=== PATIENT | male | born 1980 | race Caucasian/White ===

== ENCOUNTER → 2018-03-25 15:26 | Outpatient (CLI) | payer OTHER, SELFPAY ==
--- NOTE | 2018-03-25 19:25 | ONE_ITS ---
DATE OF SERVICE: March 25, 2018 ASSESSMENT: Infection, fifth digit left foot. EDUCATION: Improvement with prescribed antibiotic is a good indication of healing. Strongly encouraged to notify PCP or present to the Emergency Department if stops improving or condition worsens prior to follow-up appointment with PCP on 03/30/18. PLAN: Follow up with PCP (per patient preference). More than 50% of this visit spent in the planning and coordination of care. Plan of care reviewed with patient who verbalized understanding and agreement. CHIEF COMPLAINT: Infected toe. 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 SUBJECTIVE: Be presents at the request of his employer. On 03/17/18Be developed a blister on the fifth digit of his left toe after an increased workload which required lots of walking. He placed triple antibiotic ointment and a Band- Aid over the site. It ruptured spontaneously three days later; eB noted a throbbing sensation. The throbbing worsened on 03/23/18 so he made an appointment with his PCP. Clindamycin 150 mg Q8H was prescribed which he started on 03/24/18. Since starting this antibiotic his discomfort has decreased significantly. Previously his toe was sensitive to light touch and was swollen, now he is able to touch his toe without discomfort and the swelling has decreased. His PCP gave him work restrictions of minimizing walking and standing, with elevation of his left lower extremity encouraged. Be voiced he prefers to follow up with his PCP versus Occupational Medicine. REVIEW OF SYSTEMS: Denies chest pain, palpitations. Denies shortness of breath, dyspnea. Denies headache, visual changes. Denies GI or discomfort. PAST MEDICAL HISTORY: Noncontributory. MEDICATIONS: Clindamycin 150 mg q.8h. ALLERGIES: No known drug allergies. SOCIAL: Tobacco: None. ETOH: 6-12 beers occasionally in one setting. Single. Education: High school graduate. OBJECTIVE: VITAL SIGNS: 130/84, 99.8 -- 72 -- 18. Height 6-2., weight 208, BMI 26.7. PHQ -9 = 3. GENERAL: 37 year-old white male. Alert, oriented x3. Conversation appropriate. CARDIAC: HRR, no murmurs or extra heart sounds. RESPIRATORY: Lungs bilaterally CTA. Respirations unlabored. MUSCULOSKELETAL: Ambulates with slightly antalgic gait. Full ROM of lower extremities bilaterally (hips, knees, ankles, and feet). [place] in color, warm and dry to touch. No evidence of erythema, edema, or ecchymosis. Nontender to palpation. FIFTH DIGIT LEFT FOOT: Band-Aid removed for examination. Site is moist in appearance which Be states is the antibiotic ointment. No evidence of bleeding, drainage, or streaking. 1-cm diameter erosion/ulcer distal aspect fifth digit surrounded by white discoloration; nontender to moderate palpation. Entire digit appears pale that becomes pink with manipulation, temperature is equivalent to remainder of left foot and comparable to right. Nailbed appears white. Capillary refill not evident, remaining digits <2 seconds.
== END ==
PROVIDERS: PCP Family Medicine; Visit Provider Nurse Practitioner Family
DX: S90.425A Blister (nonthermal), left lesser toe(s), initial encounter (principal); L08.89 Other specified local infections of the skin and subcutaneous tissue; Y99.0 Civilian activity done for income or pay; Y93.01 Activity, walking, marching and hiking
CPT/HCPCS: 99203

== ENCOUNTER 2019-01-01 11:10 | Emergency (ER) | payer OTHER, SELFPAY ==
[2019-01-01 11:23] VITALS: BP 111/81; PULSE 70; RESP 16; TEMP 36.7; O2SAT 99
--- NOTE | 2019-01-01 11:28 | W.ED.GENAD ---
Discharge Plan Disposition Patient Disposition: HOME Condition: Fair Discharge Details Chief Complaint: Cellulitis Clinical Impression: Nancy infection Primary Care Provider: Shivam White ED Provider: Alisia Jaramillo Home Meds and New Rx's Prescriptions: New miconazole nitrate 2 % cream 1 applic TP BID 7 Days Qty: 14 RF: 0 Discharge Instructions Instructions: Skin Yeast Infection (ED) Additional Instructions: Try to allow this area to dry as much as possible, leave the areas frequently as possible. Apply miconazole cream twice a day as directed. Please follow-up with primary care in 1 week if not improving. If you develop spreading of the redness, increased pain, fever/chills or the new/worsening symptoms please seek care urgently once again. Referrals: Shivam White. [Primary Care Provider] - Discharge Data Discharge Date/Time-TO BE ENTERED AT DEPARTURE: 01/01/19 11:48 Medical Decision Making Patient 38-year-old male presenting today with chief complaint of erythema in the umbilicus that he noted 2 days ago. Reports is been steady and unchanged. Reports some mild discomfort, particularly with palpation of the area. Has been cleaning with alcohol wipe. Denies any fevers or chills. No recent travel. States that on Friday he had been taking his bellybutton as he thought there may have been it taken there. Did not actually see a tick. Is questioning if he may have scratched it. Concern for infection. On exam, the area of erythema is well-circumscribed, appears moist, it is not warm to the touch. No real tenderness with palpation. No area of fluctuance. Concern for candidal infection. Will treat with Lotrimin cream. Advise follow-up with primary care and continue to monitor the area for worsening symptoms. He was given strict return precautions. He is able to return with these. All his questions and concerns were addressed and he is in agreement this plan HPI General Mode of arrival: ambulatory. Date/Time Provider Initiated Documentation: 01/01/19 11:27. Limitations to Documentation: no limitations. Information obtained by: patient and RN notes reviewed. History of Present Illness 38 year old M presents to the emergency department with the chief complaint of erythema in umbilicus, described as mild, Quality is described as burning, and is localized to the abdomen. Patient reports no radiation. Patient started experiencing this day(s) (2) and it has been constant. No relieving factors improve symptom(s), No exacerbating factors reported . Patient notes nausea/vomiting (nausea intermittently for some time). Patient did receive the following treatments prior to arrival, none Related Data Home Medications Medication Instructions Recorded Confirmed miconazole nitrate 1 applic TP BID 7 Days #14 gm 01/01/19 Previous Rx's Medication Instructions Recorded miconazole nitrate 1 applic TP BID 7 Days #14 gm 01/01/19 Allergies Allergy/AdvReac Type Severity Reaction Status Date / Time No Known Allergies Allergy Unverified 01/01/19 11:29 General Stated Complaint: Cellulitis CAMILLE: 4 Review of Systems Constitutional Reports as per HPI, Denies chills and Denies fever(s) Musculoskeletal Reports as per HPI Integumentary/Breasts Reports as per HPI Neurologic Reports as per HPI, Denies sensory deficit and Denies paresthesias PFSH Family History Mother Dilated cardiomyopathy Heart disease Father Neoplasm Brother No problems noted. Maternal Grandfather No problems noted. Paternal Grandfather Neoplasm Maternal Grandmother Diabetes Heart disease Paternal Grandmother Neoplasm Brother No problems noted. Son No problems noted. Daughter No problems noted. Social History Smoking/Tobacco Use Status: Former Tobacco Use Quit Date: 08/11/13 Second Hand Exposure: Yes Alcohol Intake: current Alcohol Intake frequency: a few times a month Alcohol type: beer, wine and hard liquor Substance use type: does not use Duration: 60-90 minutes/day Frequency: daily Sindy/Hinduism: No preference Special sindy needs: No Do you feel safe at home: Yes Do you feel safe in your relationship?: Yes Exam Const General: cooperative, healthy appearing, comfortable, no acute distress and well developed Nutritional Appearance: average body habitus and well nourished Orientation: alert and awake Resp Effort & Inspection: normal respiratory effort, able to speak in complete sentences and no respiratory distress Cardio Rate: regular rate Rhythm: regular rhythm Skin General skin exam: erythema (localized within the umbilicus. Damp, no taylor exudate.), no excoriation(s), no fluctuance and no petechiae Lesions: no lesions Rashes: no rashes Trauma: no lacerations or abrasions Neuro General: alert and awake Cognition: normal cognition Speech: speech normal Gait: normal gait Sensory Exam: no sensory deficits noted Psych Appearance: grossly normal and well kempt Mental Status: mental status grossly normal Speech and Movement: speech and movement normal Course Vital Signs Temperature 36.7 C 01/01/19 11:23 Pulse 70 01/01/19 11:23 Respiratory Rate 16 01/01/19 11:23 Blood Pressure 111/81 01/01/19 11:23 Pulse Oximetry 99 01/01/19 11:23 Temperature 36.7 C 01/01/19 11:23 Temperature Source Skin 01/01/19 11:23 Pulse 70 01/01/19 11:23 Respiratory Rate 16 01/01/19 11:23 Blood Pressure 111/81 01/01/19 11:23 Blood Pressure Position Sitting 01/01/19 11:23 Pulse Oximetry 99 01/01/19 11:23 Oxygen Delivery Method Room Air 01/01/19 11:23 Oxygen Flow Rate 0 01/01/19 11:23 Pain Level 5 01/01/19 11:23
--- NOTE | 2019-01-01 11:39 | ED.GENADUL_ITS ---
Discharge Plan Disposition Patient Disposition: HOME Condition: Fair Discharge Details Chief Complaint: Cellulitis Clinical Impression: Nancy infection Primary Care Provider: Shivam White ED Provider: Alisia Jaramillo Home Meds and New Rx's Prescriptions: New miconazole nitrate 2 % cream 1 applic TP BID 7 Days Qty: 14 RF: 0 Discharge Instructions Instructions: Skin Yeast Infection (ED) Additional Instructions: Try to allow this area to dry as much as possible, leave the areas frequently as possible. Apply miconazole cream twice a day as directed. Please follow-up with primary care in 1 week if not improving. If you develop spreading of the redness, increased pain, fever/chills or the new/worsening symptoms please seek care urgently once again. Referrals: Shivam White. [Primary Care Provider] - Discharge Data Discharge Date/Time-TO BE ENTERED AT DEPARTURE: 01/01/19 11:48 Medical Decision Making Patient 38-year-old male presenting today with chief complaint of erythema in the umbilicus that he noted 2 days ago. Reports is been steady and unchanged. Reports some mild discomfort, particularly with palpation of the area. Has been cleaning with alcohol wipe. Denies any fevers or chills. No recent travel. States that on Friday he had been taking his bellybutton as he thought there may have been it taken there. Did not actually see a tick. Is questioning if he may have scratched it. Concern for infection. On exam, the area of erythema is well-circumscribed, appears moist, it is not warm to the touch. No real tenderness with palpation. No area of fluctuance. Concern for candidal infection. Will treat with Lotrimin cream. Advise follow-up with primary care and continue to monitor the area for worsening symptoms. He was given strict return precautions. He is able to return with these. All his questions and concerns were addressed and he is in agreement this plan HPI General Mode of arrival: ambulatory . Date/Time Provider Initiated Documentation: 01/01/19 11:27 . Limitations to Documentation: no limitations . Information obtained by: patient and RN notes reviewed . History of Present Illness 38 year old M presents to the emergency department with the chief complaint of erythema in umbilicus, described as mild, Quality is described as burning, and is localized to the abdomen. Patient reports no radiation. Patient started experiencing this day(s) (2) and it has been constant. No relieving factors improve symptom(s), No exacerbating factors reported . Patient notes nausea/vomiting (nausea intermittently for some time). Patient did receive the following treatments prior to arrival, none Related Data Home Medications Medication Instructions Recorded Confirmed miconazole nitrate 1 applic TP BID 7 Days #14 gm 01/01/19 Previous Rx's Medication Instructions Recorded miconazole nitrate 1 applic TP BID 7 Days #14 gm 01/01/19 Allergies Allergy/AdvReac Type Severity Reaction Status Date / Time No Known Allergies Allergy Unverified 01/01/19 11:29 General Stated Complaint: Cellulitis CAMILLE: 4 Review of Systems Constitutional Reports as per HPI, Denies chills and Denies fever(s) Musculoskeletal Reports as per HPI Integumentary/Breasts Reports as per HPI Neurologic Reports as per HPI, Denies sensory deficit and Denies paresthesias PFSH Family History Mother Dilated cardiomyopathy Heart disease Father Neoplasm Brother No problems noted. Maternal Grandfather No problems noted. Paternal Grandfather Neoplasm Maternal Grandmother Diabetes Heart disease Paternal Grandmother Neoplasm Brother No problems noted. Son No problems noted. Daughter No problems noted. Social History Smoking/Tobacco Use Status: Former Tobacco Use Quit Date: 08/11/13 Second Hand Exposure: Yes Alcohol Intake: current Alcohol Intake frequency: a few times a month Alcohol type: beer, wine and hard liquor Substance use type: does not use Duration: 60-90 minutes/day Frequency: daily Sindy/Sabianism: No preference Special sindy needs: No Do you feel safe at home: Yes Do you feel safe in your relationship?: Yes Exam Const General: cooperative, healthy appearing, comfortable, no acute distress and well developed Nutritional Appearance: average body habitus and well nourished Orientation: alert and awake Resp Effort & Inspection: normal respiratory effort, able to speak in complete sentences and no respiratory distress Cardio Rate: regular rate Rhythm: regular rhythm Skin General skin exam: erythema (localized within the umbilicus. Damp, no taylor exudate.), no excoriation(s), no fluctuance and no petechiae Lesions: no lesions Rashes: no rashes Trauma: no lacerations or abrasions Neuro General: alert and awake Cognition: normal cognition Speech: speech normal Gait: normal gait Sensory Exam: no sensory deficits noted Psych Appearance: grossly normal and well kempt Mental Status: mental status grossly normal Speech and Movement: speech and movement normal Course Vital Signs Temperature 36.7 C 01/01/19 11:23 Pulse 70 01/01/19 11:23 Respiratory Rate 16 01/01/19 11:23 Blood Pressure 111/81 01/01/19 11:23 Pulse Oximetry 99 01/01/19 11:23 Temperature 36.7 C 01/01/19 11:23 Temperature Source Skin 01/01/19 11:23 Pulse 70 01/01/19 11:23 Respiratory Rate 16 01/01/19 11:23 Blood Pressure 111/81 01/01/19 11:23 Blood Pressure Position Sitting 01/01/19 11:23 Pulse Oximetry 99 01/01/19 11:23 Oxygen Delivery Method Room Air 01/01/19 11:23 Oxygen Flow Rate 0 01/01/19 11:23 Pain Level 5 01/01/19 11:23
[2019-01-01 11:50] VITALS: BP 111/81; PULSE 70; RESP 16; TEMP 36.7; O2SAT 99
== END 2019-01-01 11:48 | disposition home or self-care (01) ==
PROVIDERS: Emergency Provider Physician Assistant; PCP Family Medicine
DX: L53.9 Erythematous condition, unspecified (principal); B37.2 Candidiasis of skin and nail
CPT/HCPCS: 99283

== ENCOUNTER 2020-06-26 08:12 | Outpatient (CLI) | payer OTHER, SELFPAY ==
[2020-06-28 22:06] LABS: Patient Race White; SARS-CoV-2 RNA Undetected (Undetected); SARS-CoV-2 Specimen Source Nasal
== END 2020-06-26 08:32 ==
PROVIDERS: PCP Family Medicine; Visit Provider Family Medicine
DX: Z00.00 Encounter for general adult medical examination without abnormal findings (principal); Z11.59 Encounter for screening for other viral diseases
CPT/HCPCS: U0003